=== PATIENT | female | born 2000 | race Caucasian/White ===

== ENCOUNTER → 2019-04-30 14:44 | Outpatient (CLI) | payer OTHER, MEDICAID, SELFPAY ==
--- NOTE | 2019-04-30 | DI.ECHO.S_ITS ---
[facility]---------+ [facility] +---------+ : : [address] : : : : [id number] : : : : Phone: [phone] +---------+ Echocardiogram Report + + :Name: ONDINA WOLFE Study Date: 04/30/2019 Height: 70 in : :[facility] Weight: 145 lb : : Gender: Female BSA: 1.8 m2 : :: 2000 Age: 19 yrs BP: 116/76 mmHg: :Reason For Study: HX of Syncope : :Ordering Physician: Kerri Benavidez : :Noemy Performed By: Choco Valera : :Referring: KERRI SALGUERO : + + Interpretation Summary 1) Normal left ventricular thickness and size with low normal function (EF 50- 55%). 2) Normal right ventricular size and function. 3) No significant valvular abnormalities. 4) Compared to the Echo done 01/22/2016, no significant change. Procedure: A two-dimensional transthoracic echocardiogram with color flow and Doppler was performed. The study quality was technically adequate. Prior echo performed on 01/22/16. The patient was in normal sinus rhythm during the exam. Left Ventricle: The left ventricle is normal in size. There is normal left ventricular wall thickness. Left ventricular systolic function is low normal. The ejection fraction is estimated to be 50-55%. There are no focal wall motion abnormalities. Right Ventricle: The right ventricle is normal in size and function. A moderator band is seen in the right ventricle. Atria: The left atrial size is normal. Right atrial size is normal. The interatrial septum is intact with no evidence for an atrial septal defect. Mitral Valve: The mitral valve is normal in structure and function. There is no mitral regurgitation noted. Aortic Valve: The aortic valve is trileaflet. The aortic valve opens well. No aortic regurgitation is present. Tricuspid Valve: The tricuspid valve is normal in structure and function. No tricuspid regurgitation. Pulmonic Valve: The pulmonic valve is not well visualized. There is trace pulmonic regurgitation. Great Vessels: The aortic root is normal size. The ascending aorta could not be visualized. The pulmonary artery is normal size. The inferior vena cava was not well visualized. Pericardium/ Pleura There is no pericardial effusion. There is no pleural effusion. MMode/2D Measurements & Calculations LVIDd: 4.6 cm LVOT diam: 2.2 cm LVIDs: 3.3 cm Ao root diam: 3.1 cm FS: 29.2 % EPSS: 0.66 cm IVSd: 0.76 cm LVPWd: 1.0 cm LV uribe. diameter/BSA (cm/m^2): 2.6 LV sys. diameter/BSA (cm/m^2): 1.8 LA A2 area: 13.3 cm2 RA long axis: 4.7 cm LA A4 area: 13.3 cm2 RA area: 10.4 cm2 LA length (vol): 4.4 cm RA vol: 19.4 ml LA vol: 33.9 ml RA : 10.7 ml/m2 LA vol index: 18.6 ml/m2 TAPSE: 2.0 cm Doppler Measurements & Calculations Ao V2 max: 102.7 cm/sec LVOT Max Glenys: 82.2 cm/sec Ao V2 mean: 72.3 cm/sec LV V1 max P.7 mmHg Ao max P.2 mmHg LV V1 VTI: 16.1 cm Ao mean P.4 mmHg CHAIM(I,D): 3.1 cm2 Ao V2 VTI: 18.8 cm CHAIM(V,D): 2.9 cm2 sev ratio: 0.85 CHAIM indexed to BSA (cm^2/m^2): 1.7 MV E max glenys: 69.2 cm/sec PA V2 max: 63.4 cm/sec MV A max glenys: 50.7 cm/sec PA V2 mean: 46.6 cm/sec MV E/A: 1.4 PA mean P.00 mmHg Med Peak E' Glenys: 11.7 cm/sec PA Accel Time: 0.19 sec E/E' med: 5.9 Lat Peak E' Glenys: 12.8 cm/sec E/E' lat: 5.4 E/e' average: 5.7 MV dec time: 0.19 sec SV(LVOT): 59.2 ml Reading Physician:[id number] PM
== END ==
PROVIDERS: PCP Family Medicine; Visit Provider Internal Medicine Cardiovascular Disease
DX: R55 Syncope and collapse (principal); Z87.898 Personal history of other specified conditions
CPT/HCPCS: 93306

== ENCOUNTER → 2019-07-24 11:00 | Outpatient (CLI) | payer OTHER, MEDICAID, SELFPAY ==
[2019-07-24 13:28] LABS: Influenza A - CEPHEID Flu A NEGATIVE (NEGATIVE); Influenza B - CEPHEID Flu B NEGATIVE (NEGATIVE)
[2019-07-26 08:11] LABS: COVID19 Sendout Not Detected (Not Detected)
== END ==
PROVIDERS: PCP Family Medicine; Visit Provider Family Medicine
DX: R05 Cough (principal); R50.9 Fever, unspecified
CPT/HCPCS: 87502; 87635

== ENCOUNTER → 2021-04-18 10:28 | Outpatient (CLI) | payer OTHER, MEDICAID, SELFPAY ==
[2021-04-18 11:12] LABS: COVID19 -Nasal RAPID POSITIVE (Negative)
== END ==
PROVIDERS: PCP Family Medicine; Referring Provider Physician Assistant; Visit Provider Physician Assistant
DX: Z20.822 Contact with and (suspected) exposure to COVID-19 (principal); R05.8 Other specified cough
CPT/HCPCS: 87635

== ENCOUNTER → 2024-04-18 12:46 | Outpatient (CLI) | payer OTHER, SELFPAY ==
[2024-04-18 15:17] LABS: Urine N gonorrhoeae NOT DETECTED
[2024-04-18 15:42] LABS: Urine Chlamydia NOT DETECTED
== END ==
PROVIDERS: PCP Family Medicine; Visit Provider Physician Assistant Medical
DX: N89.8 Other specified noninflammatory disorders of vagina (principal)
CPT/HCPCS: 87210; 87491; 87591